=== PATIENT | male | born 1965 | race African-American/Black ===

== ENCOUNTER → 2018-09-24 | Day surgery (SDC) | payer OTHER ==
[~2018-09-24] MED LIST: ACETAMINOPHEN325 M1 PO; ALIVE MENS ENERGY PO; ASPIR 8181 MG PO; ATORVASTATIN CA20 MG PO; ESMOLOL HCL 100MG/10ML 10 MG/ML VIAL ONE; FAMOTIDINE20 MG PO; LEXAPRO10 MG PO; LIDOCAINE HCL 2% LOCAL INJ 5 ML SDV VIAL INJ ONE; LISINOPRIL10 MG PO; MELATONIN3 MG PO; METFORMIN HCL500 MG PO; MIDAZOLAM HCL 2 MG/2 ML VIAL ONE; PROPOFOL IV EMULSION 10 MG/ML 20 ML VIAL ONE; SENOKOT8.6 MG PO
--- OUTSIDE RECORDS SUMMARY | 2018-09-24 11:21 | XMS REPORT | Clinical Summary ---
Author Author [facility] Address Unknown Phone Unavailable Care Team Providers Care Hand Tapper Name Role Phone Asked, No Pcp PCP Unavailable Allergies No Known Allergies Medications End Date Status Medication Sig Dispensed Refills Start Date Active metFORMIN (GLUCOPHAGE) Take 500 mg 0 500 mg tablet by mouth 2 (two) times a day with meals. Active rivaroxaban (XARELTO) 10 Take 5 mg by 0 mg tablet mouth daily. Active Problems Problem Noted Date Stroke 06/14/2017 Respiratory failure 12/23/2016 [place] 11/22/2016 CVA (cerebral vascular accident) 11/22/2016 [place] 11/22/2016 Overview: Added automatically from request for surgery [id number] Immunizations Name Dates Previously Given Next Due FLUCELVAX QUAD PF (0.5mL 12/16/2016 syringe) Social History Date Tobacco Use Types Packs/Day Years Used Never Smoker Smokeless Tobacco: Never Used Alcohol Use Drinks/Week oz/Week Comments No Sex Assigned at Date Recorded Not on file Industry Job Start Date Occupation Not on file Not on file Not on file Travel End Travel History Travel Start No recent travel history available. Last Filed Vital Signs Not on file Plan of Treatment Health Maintenance Due Date Last Done Comments COLONOSCOPY SCREENING 2015 SHINGLES VACCINES (#1) 2015 INFLUENZA VACCINE 10/24/2018 12/16/2016 Implants Device Identifier Shelf Expiration Date Model / Serial / Lot Implanted Type Area Manufactur er 05/23/2017 [id number] / / [id number] Device Vasclr Clsr Vasoactive Cardiovasc N/A: N/A Intstnl Peptd 8fr Angio-Seal - ular [id number] Implants Implanted: 11/22/2016 (Quantity not on file) [id number] / / Cover Bur Hol Lpr Nurosurgy 17mm - Cranial N/A: N/A SYNTHES [id number] Plate or MAXIOFACIA Implanted: Qty: 4 on 06/18/2017 by Bur Hole L IMPLANT Nela Baca MD Cover [id number] / / Screw Bone Slf-Drl Mtrxnuro Ti 4mm Cranial N/A: N/A SYNTHES - [id number] Plate or MAXIOFACIA Implanted: Qty: 20 on 06/18/2017 by Bur Hole L IMPLANT Nela Baca MD Cover 02/22/2019 [id number] / / [id number] Matrix Dural Duragen Plus 4x5in Human N/A: N/A INTE[employer]RA Regnrtn - [id number] Tissue LIFESCIENC Implanted: Qty: 1 on 11/24/2016 by Implants Nela Watkins MD 01/23/2019 [id number] / / [id number] Matrix Dural Duragen Plus 2x2in Human N/A: N/A [employer]RA Regnrtn - [id number] Tissue LIFESCIENC Implanted: Qty: 1 on 11/24/2016 by Implants Nela Watkins MD [id number] / / Catheter Angio Diag Tyree 2 Tempo Surgical N/A: N/A CORDIS 5fr 125cm - [id number] Implants; EZIO Implanted: 11/22/2016 (Quantity not Expanders; ENDOVASCUL on file) Extenders; AR Surgical Wires [id number] 10 / / Device Revasclrzn Flow Rstrtn Surgical N/A: N/A [employer] 20x4mm Solitaire - [id number] Implants; Implanted: 11/22/2016 (Quantity not Expanders; on file) Extenders; Surgical Wires 05/23/2018 [id number] / / [id number] Kit Hemostatic Matrix W/Thrombin Surgical N/A: N/A ETHICON 8ml Surgiflo - [id number] Implants; US- Implanted: 11/24/2016 (Quantity not Expanders; on file) Extenders; Surgical Wires 09/22/2018 2994 / / [id number] Kit Hemostatic Matrix W/Thrombin Surgical N/A: N/A ETHICON 8ml Surgiflo - [id number] Implants; US-EH Implanted: Qty: 1 on 06/18/2017 Expanders; Extenders; Surgical Wires Procedures Comments Procedure Name Priority Date/Time Associated Diagnosis TRANSFUSE RED BLOOD CELLS Routine 11/28/2017 5:40 PM CDT TRANSFUSE RED BLOOD CELLS Routine 11/28/2017 5:40 PM CDT after 09/23/2017 Results * Transfuse RBC (11/28/2017 5:40 PM CDT) Only the most recent of 2 results within the time period is included. after 09/23/2017 Insurance Type Payer Benefit Subscriber ID Effective Phone Address Plan / Dates Group Medicaid MEDICAID MEDICAID xxxxxxxxx 2017- Present Advance Directives Patient has advance care planning documents on file. For more information, joseph villagran contact: Evans Srinivasan [address] [place] [address]
[2018-09-24 13:25] VITALS: BP 138/94
--- NOTE | 2018-09-24 15:14 | Operative Report ---
DATE OF PROCEDURE: 09/24/2018 SURGEON: Kedar Sheets MD PROCEDURE: Esophagogastroduodenoscopy with polypectomy and biopsies and esophageal dilatation. INDICATION FOR PROCEDURE: Dysphagia, upper abdominal pain, bloating. MEDICATIONS: The patient was done under MAC, please see anesthesiologist's note. PROCEDURE IN DETAIL: With the patient in left lateral decubitus position flexible fiberoptic Olympus gastroscope was introduced into the esophagus under direct visualization without any difficulty. There were some patchy intense erythema, edema, and friability in the distal esophagus. There was a mild stricture noted at the GE junction that was dilated to size 52-[place]. The scope was then advanced with ease into the stomach traversing a small sliding hiatal hernia. Mucosa overlying the antrum revealed some patchy intense erythema, moderate edema and some erosions. There was no active bleeding. Biopsies were obtained. There was also an approximately 3 mm submucosal nodule that was biopsied. An approximately 8 mm polyp was noted in the mid body greater curvature that was removed per snare electrocautery. Other minute hyperplastic-appearing polyps were partially excised with the cold biopsy forceps. Pylorus was of normal contour and shape, it was intubated with ease and the scope was advanced all the way to the second portion of the duodenum. The scope was then withdrawn slowly, mucosa overlying the proximal second portion and duodenal bulb appeared to be within normal limits. The scope was then withdrawn back into the stomach and retroflexed, mucosa overlying the fundus and cardia grossly appeared to be within normal limits. The scope was then straightened out, it was subsequently withdrawn, the patient tolerated the procedure well. IMPRESSION: 1. Distal esophagitis. 2. Esophageal stricture at GE junction, dilated to size 52-[place] Landrum. 3. Small sliding hiatal hernia. 4. Gastritis, erosive, biopsied. Biopsies sent to stain for Helicobacter pylori. 5. Gastric polyp, approximately 8 mm in size, midbody greater curvature, removed per snare electrocautery. 6. Gastric polyps, minute, hyperplastic appearing, several, some were partially excised with cold biopsy forceps. 7. Submucosal nodule, antrum biopsied. PLAN: Follow up histology. Initiate Protonix 40 mg one p.o. q.a.m. a.c. Kedar Sheets MD [facility] [place][id number] cc: Dr. Chivo Barbosa
== END | disposition home or self-care (01) ==
LOC: OR 11:18
PROVIDERS: ATTEND Internal Medicine Gastroenterology
DX: K22.2 Esophageal obstruction (principal); K31.7 Polyp of stomach and duodenum; K29.60 Other gastritis without bleeding; K20.9 Esophagitis, unspecified; K31.89 Other diseases of stomach and duodenum; K44.9 Diaphragmatic hernia without obstruction or gangrene; K21.9 Gastro-esophageal reflux disease without esophagitis; E11.9 Type 2 diabetes mellitus without complications; I10 Essential (primary) hypertension; J45.909 Unspecified asthma, uncomplicated; I69.398 Other sequelae of cerebral infarction; R53.1 Weakness; Z79.82 Long term (current) use of aspirin; Z79.4 Long term (current) use of insulin; Z79.84 Long term (current) use of oral hypoglycemic drugs
CPT/HCPCS: 36415; 43239; 43251; 43450; 82948; 93005; J2001; J2250; J2704